=== PATIENT | male | born 1950 | race Caucasian/White ===

== ENCOUNTER → 2020-10-28 14:42 | Outpatient (BNVA) | payer MEDICARE, SELFPAY | PROVIDERS: Visit Provider Surgery | DX: Z01.812 Encounter for preprocedural laboratory examination (principal) | CPT/HCPCS: 87635 ==

== ENCOUNTER 2020-12-05 06:16 | Day surgery (SDC) | payer MEDICARE, SELFPAY ==
[2020-12-01 13:20] VITALS: BMI 26.5
--- NOTE | 2020-12-05 06:29 | P.HP_ITS ---
Same Day Surgery H&P Indication for Procedure/HPI DATE OF PROCEDURE: December 05, 2020 CHIEF COMPLAINT/INDICATIONFOR SURGICAL PROCEDURE: Screening colonoscopy PREOP DIAGNOSIS: Screening colonoscopy PLANNED PROCEDRUE: Operation Date: 12/05/20 07:15 Proposed Procedures p Colonoscopy 35399 Z12.11(Not Applicable) - Kodi Young MD This is a 70 years old gentleman presented to my office as he has been referred for screening colonoscopy. No acute events since the patient was seen and evaluated in my practice back in September 2020 ROS All systems have been reviewed negative except as per the above and per problem list. Medications/Allergies* Home Medications Medication Instructions Recorded Confirmed Type garlic 500 mg capsule 500 mg PO DAILY 08/24/20 12/01/20 History multivitamin 1 tab PO DAILY 08/24/20 12/01/20 History saw palmetto 160 mg capsule 160 mg PO BID 08/24/20 12/01/20 History Allergies/Adverse Reactions Allergy/AdvReac Type Severity Reaction Status Date / Time No Known Allergies Allergy Verified 12/05/20 06:31 Pertinent History/Comorbid Conditions* Family History (Updated 08/24/20 @ 14:38 by Ila Winchester LPN) Cancer Mother COLON Hypertension Mother Denies family history of CAD (coronary artery disease) Anesthesia complication Bleeding disorder Social History Smoking and tobacco status: never smoked Alcohol intake: never Household members: spouse Marital status: Current occupational status: employed History of recent travel: No Pertinent Exam Findings alert, oriented x 3, clear to auscultation bilaterally, regular rate & rhythm and procedure specific exam findings (Abdominal examination nontender nondistended soft) Recommendations Surgery/Procedure today (Colonoscopy with possible biopsy and possible polypectomy) Other Plans: Plan of care; After thorough history and physical examination and reviewing the chart, plan to perform screening colonoscopy. I discussed with the patient in details the risks,benefits,alternatives and indications.The risk of aspiration, bleeding, soft tissue injury, perforation of the colon and other potential concomitant complications were explained to the patient in details,also the potential need for Laproscoy/Laparotomy to repair any related complications including but not limited to colectomy and or C losotomy.The patient understood this well and did agree to proceed. Rationale was carefully and clearly discussed with the patient.Appropriate informed consent have been reviewed and signed All questions have been answered and all concerns have been addressed to patient's satisfaction. Verbal and written Instructions were given to the patient for colonoscopy prep Coding Level of Care Code Acute Residence Life Coordinator for Mario Lopez
[2020-12-05 06:37] VITALS: BP 124/88; PULSE 78; RESP 18; TEMP 36.9; O2SAT 95
[2020-12-05] MEDS: sodium chloride 0.9% 1,000 ML 30 ML IV (06:41)
--- NOTE | 2020-12-05 06:45 | ANES.PREANE2 ---
Pre-Anesthetic Assessment Pre-Anesthetic Assessment: Height/Weight: Height 1.78 m Weight 83.915 kg Temp Pulse Resp BP Pulse Ox 98.4 F 78 18 124/88 95 12/05/20 06:37 12/05/20 06:37 12/05/20 06:37 12/05/20 06:37 12/05/20 06:37 Preop Diagnosis: Screening colonoscopy Proposed Procedure: Operation Date: 12/05/20 07:15 Proposed Procedures p Colonoscopy 66348 Z12.11(Not Applicable) - Kodi Young MD Was Beta Thomas taken within 24 hours: N/A Was Clonidine taken within 24 hours: N/A Last intake: Intake Last Liquid Date 12/04/20 Last Liquid Time 21:00 Last Solid Date 12/03/20 Last Solid Time 22:00 Social: Social History: No alcohol and No tobacco Exam: Pre-Anes Outpt Exam: alert, oriented x 3, clear to auscultation bilaterally and regular rate & rhythm Airway: Submandibular: WNL Cervical ROM: WNL MP: 2 History/ROS: No significant history except as noted Pulmonary: Comments: seasonal allergies CV/HEM: CV/HEM: None reported : : None reported Hepatic: Hepatic: None reported GI: GI: None reported Metabolic: Metabolic: None reported Musc/skel: Comments: hip pain Neuropsych: Neuropsych: None reported Anesthetic Plan: ASA status: 1 Anesthesia: Anesthesia Evaluation and MAC Risk of > 500 ml blood loss (7ml/kg in children): No Meds/Allergies Current Medications: Current Medications Generic Name Dose Route Start Last Admin Trade Name Freq PRN Reason Stop Dose Admin Sodium Chloride 1,000 mls @ 30 ml s/hr 12/05/20 06:45 12/05/20 06:41 Sodium Chloride 0.9% IV 30 mls/hr .Q24H DYLLAN Administration PFSH Anesthesia PFSH: Family History Mother Cancer COLON Hypertension Denies family history of CAD (coronary artery disease) Anesthesia complication Bleeding disorder Social History Smoking and tobacco status: never smoked Alcohol intake: never Household members: spouse Marital status: Current occupational status: employed History of recent travel: No Data Anesthesia Cardiac Studies: No Data to Display
[2020-12-05 07:33] VITALS: BP 107/68; PULSE 73; RESP 18; TEMP 36.5; O2SAT 92
[2020-12-05 07:48] VITALS: BP 109/69; PULSE 70; RESP 20; O2SAT 93
--- NOTE | 2020-12-05 18:56 | ANE.PACU2 ---
Inpatient post-anesthesia follow up: Airway intact: Yes Vital signs: Temperature 97.7 F Pulse Rate 70 Respiratory Rate 20 Blood Pressure 109/69 Pulse Oximetry 93 Oxygen Delivery Me thod Nasal Cannula Oxygen Flow Rate 2 Fraction of Inspir ed Oxygen Hydration adequate: Yes Nausea and vomiting: No Pain level: 1 Mental status: Baseline
== END 2020-12-05 07:55 | disposition home or self-care (01) ==
PROVIDERS: PCP Family Medicine; Visit Provider Surgery
PROC: 0DJD8ZZ Inspection of Lower Intestinal Tract, Via Natural or Artificial Opening Endoscopic (ICD-10-PCS; CPT 45378; principal; 2020-12-05 07:15)
DX: Z12.11 Encounter for screening for malignant neoplasm of colon (principal); Z80.0 Family history of malignant neoplasm of digestive organs
CPT/HCPCS: 96360; G0121; J2704; J7030